=== PATIENT | male | born 1985 | race Two or more races ===

== ENCOUNTER 2024-06-25 06:16 | Emergency (ER) | payer MEDICAID, SELFPAY ==
[2024-06-25 06:21] VITALS: BP 131/77; PULSE 82; RESP 18; TEMP 36.8; O2SAT 96
--- NOTE | 2024-06-25 06:33 | PC.NURSE ---
C/O RIGHT FLANK PAIN, PT STATES HE FELL IN THE BATHROOM A COUPLE OF DAYS AGO DUE TO HIS NEUROPATHY.. BRUISING NOTED TO RIGHT FLANK AREA. PT ALERT AND ORIENTED AND IN NO ACUTE DISTRESS. WILL CONTINUE WITH PLAN OF CARE
[2024-06-25 06:36] VITALS: BMI 28.1
[2024-06-25 06:41] VITALS: BP 132/71; PULSE 84; RESP 18; O2SAT 99
--- NOTE | 2024-06-25 07:13 | EDNOTE_ITS ---
ED General RME/HPI General Chief complaint: Abdominal Pain Stated complaint: RIGHT FLANK PAIN, SOB Time Seen by Provider: 06/25/24 06:20 Arrival date/time: 06/25/24 06:16 RME / HPI RME / HPI narrative: Patient is a 38 years old male with PMH of diabetes and diabetic neuropathy presented to the ED due to back pain after ground level fall. He reports he fell 6 days ago while taking shower when he slipped accidentally. He reports pain is mostly located over his right flank which was main area of impact when he fell. He reports pain when raising legs and tenderness over lumbar spine. He denies dizziness, headache, chest pain, abdominal pain, nausea, vomiting, fever. Related Data Previous Rx's ?Medication ?Instructions ?Recorded diazepam 10 mg tablet 10 mg PO BID PRN muscle spas m #6 06/25/24 tabs Allergies Allergy/AdvReac Type Severity Reaction Status Date / Time No Known Allergies Allergy Verified 06/25/24 06:18 Review of Systems Review of Systems Systems Reviewed: All systems reviewed, normal except as documented ED Exam Narrative Physical exam: Gen: Well-developed and well-nourished male. HEENT: NCAT, PERRLA, EOMI, MMM, anicteric conjunctivae. CVS: normal S1 and S2. RRR. No M/R/G. Resp: CTA B/L. No rhonchi, rales, crackles or wheezing. Abd: soft, non-tender, non-distended. BS+ in all 4 quadrants. MSK: Good ROM in BUE & BLE. No edema or rash. Tenderness over lumbar spine and right flank. There is a bruise over right flank. Neuro: CN II-XII grossly intact. Strength 5/5 in BUE & BLE. Alert and oriented x3. Psych: appropriate mood and affect. Course Course Course Narrative: 0730: lumbar spine XR 6V negative for fractures. 0930: significant improvement after diazepam 10 mg. Quality Measures none Orders Category Date Time Status XR lumbar spine min 4V Stat Exams 06/25/24 07:31 Completed Acetaminophen Tab [Tylenol ES Tab] Med 06/25/24 08:01 Discontinued 1,000 mg PO X1 ONE Diazepam Inj [Valium Inj] Med 06/25/24 08:39 Discontinued 10 mg IVP X1 ONE Ketorolac Inj [Toradol Inj] Med 06/25/24 08:01 Discontinued 15 mg IVP X1 ONE Morphine Inj Med 06/25/24 07:19 Discontinued 2 mg IVP X1 ONE Vital Signs Vital signs: Vital Signs Temperature 98.2 F 06/25/24 06:21 Pulse Rate 82 06/25/24 06:21 Respiratory Rate 18 06/25/24 06:21 Blood Pressure 131/77 H 06/25/24 06:21 Pulse Oximetry (%) 96 06/25/24 06:21 Oxygen Delivery Method Room Air 06/25/24 06:21 [facility] Patient data External records reviewed:: [facility] previous records Clinical information provided by:: patient and family Social determinants that could affect healthcare access:: none Patient has the following chronic illnesses:: diabetes and diabetic neuropathy How is presenting disease/condition affected by chronic disease/condition?: uneffected by Evaluation data The following diagnostics were reviewed and interpreted by me:: radiology exam(s) Lab and/or radiology exams considered but not ordered:: CT spine Interpretation Summary: No acute fractures Medications Medications considered but not ordered:: oxycodone Medication administrations:: Medication Administration History Discontinued Medications Acetaminophen (Acetaminophen 500 Mg Tablet) 1,000 mg PO X1 ONE Stop: 06/25/24 08:02 Last Admin: 06/25/24 08:08 Dose: 1,000 mg Documented By: BD Diazepam (Diazepam Inj 5 Mg/Ml Vial 2 Ml) 10 mg IVP X1 ONE Stop: 06/25/24 08:40 Last Admin: 06/25/24 08:51 Dose: 10 mg Documented By: BD Ketorolac Tromethamine (Ketorolac Inj 30 Mg/Ml Vial) 15 mg IVP X1 ONE Stop: 06/25/24 08:02 Last Admin: 06/25/24 08:08 Dose: 15 mg Documented By: BD Morphine Sulfate (Morphine Sulf Inj 10 Mg/Ml Vial) 2 mg IVP X1 ONE Stop: 06/25/24 07:20 Last Admin: 06/25/24 07:28 Dose: 2 mg Documented By: BD as above Consultations Consultation(s) initiated? (list below): No Diagnosis Differential Diagnosis ED Complaint MDM: spinal fracture, contusion, sciatica Most likely diagnosis given after review of the tests above:: Contusion Admission Indicated Admission indicated?: not indicated Explain why admission is indicated or not indicated:: No acute fracture was found, pain control outpatient for back contusion and muscle spasms. Admission Request Was there a request for admission?: No Disposition Plan Disposition Plan: Discharge Discharge Attestation Discharge Attestation: The patient and all family members were given an opportunity to ask questions and understood the discharge instructions. Discharge instructions specifically effects, indications for sooner follow up or return to the emergency department, and the expected course of current diagnosis. Patient condition: Stable Medical Decision Making MDM Narrative MDM Narrative: The patient is a 38-year-old male with a history of diabetes and diabetic neuropathy who presented with back pain after a ground-level fall 6 days ago while taking a shower. The pain is localized to the right flank, where the primary impact occurred, with associated tenderness over the lumbar spine and pain when raising his legs. He denies dizziness, headache, chest pain, nausea, vomiting, fever, or other concerning symptoms. Physical examination revealed tenderness over the lumbar spine and a bruise on the right flank, but no neurological deficits. A lumbar spine X-ray was negative for fractures. The patient experienced significant improvement in symptoms following administration of diazepam, leading to the diagnosis of a back contusion with muscle spasms. The patient is stable for discharge with instructions to continue his home medications and manage pain with Valium as needed (up to twice daily), along with ibuprofen or acetaminophen as needed. He is advised to use heating pads or soak in a hot tub to relieve discomfort. Clear guidance has been provided to return to the emergency department if symptoms worsen or recur. He is instructed to follow up with his primary care provider within 1 week for further evaluation and management. The patient has understood and is agreeable to the discharge plan. Differential Diagnosis Differential Diagnosis: spinal fracture, contusion, sciatica Discharge Plan Plan Patient Disposition: HOME (Self Care) Patient condition on transfer: Stable Prescriptions/Referrals Prescriptions/Med Rec: New diazepam 10 mg tablet 10 mg PO BID PRN (Reason: muscle spasm) Qty: 6 0RF Referrals: Fredrick De La oRsa PA-C [Primary Care Provider] - In 1 week Problem List Clinical Impression: Contusion of lower back, Ground-level fall Patient/Caregiver Discharge Instructions Education Materials: ED Soft Tissue Contusion, ED Back Contusion Additional Instructions: Continue home medications as prescribed. Take Valium 1 tab as needed up to 2 times a day for back pain. Take ibuprofen or tylenol over the counter for pain as needed. Take hot tub and apply heating pad on affected area as needed. Follow up with PCP within 1 week. Return to the ED if symptoms recur or worsen. Print Language: Eritrean Stand Alone Forms: [employer]re[employer] Award Info., Patient Portal Info Letter
[2024-06-25] MEDS: MORPHINE SULF INJ 10 MG/ML VIAL 2 MG IVP (07:28)
--- NOTE | 2024-06-25 07:31 | XR_ITS ---
Examination: Lumbar spine, 5 views Technique: Lumbar spine AP, lateral, coned lateral lower lumbar spine, bilateral obliques 5 views Exam date and time: June 25, 2024 0641 hours INDICATIONS: Patient fell 2 weeks ago with injury to the lower back, lower back pain. FINDINGS: Adequate alignment lumbar vertebral bodies No lumbar fracture Diffuse [id number] lumbar disc narrowing most prominent at the lower 2 lumbar levels IMPRESSION: No acute lumbar fracture
[2024-06-25] MEDS: KETOROLAC INJ 30 MG/ML VIAL 15 MG IVP (08:08)
[2024-06-25] MEDS: ACETAMINOPHEN 500 MG TABLET 1000 MG PO (08:08)
[2024-06-25] MEDS: DIAZEPAM INJ 5 MG/ML VIAL 2 ML 10 MG IVP (08:51)
[2024-06-25 09:21] VITALS: BP 115/68; PULSE 71; RESP 20; TEMP 36.8; O2SAT 96
[2024-06-25 10:00] VITALS: BP 128/72; PULSE 78; RESP 15; TEMP 36.8; O2SAT 98
== END 2024-06-25 10:41 | disposition home or self-care (01) ==
PROVIDERS: Emergency Provider Emergency Medicine; PCP Physician Assistant
DX: S30.0XXA Contusion of lower back and pelvis, initial encounter (principal); W18.30XA Fall on same level, unspecified, initial encounter; E11.40 Type 2 diabetes mellitus with diabetic neuropathy, unspecified
CPT/HCPCS: 72110; 96374; 99284; J1885; J2270; J3360; A9270

== ENCOUNTER 2024-06-25 16:29 | Emergency (ER) | payer MEDICAID, SELFPAY ==
[2024-06-25 17:08] VITALS: BP 136/78; PULSE 94; RESP 18; TEMP 36.9; O2SAT 99; BMI 27.3
--- NOTE | 2024-06-25 17:08 | EKG_ITS ---
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
--- NOTE | 2024-06-25 17:08 | XR_ITS ---
Examination: AP chest single view TECHNIQUE: AP portable sitting chest single view Examination time: 20/08/2024 1736 hours INDICATIONS: Chest pain today. FINDINGS: Normal heart size. Lungs are clear. The osseous structures are intact. IMPRESSION: No active disease
--- NOTE | 2024-06-25 17:08 | PD.EDRME ---
Rapid Medical Screening Exam RME Arrival date/time: 06/25/24 16:29 38-year-old male presents to the emergency department for complaints of dizziness Chief Complaint: Dizziness Time Seen by Provider: 06/25/24 16:36
[2024-06-25 17:31] LABS: Basophils # (Auto) 0.1 Thou/mm3 (0.0-0.2); Basophils % (Auto) 1 % (0-2.5); Eosinophils % (Auto) 0 % (0-10); Hematocrit 31.9 % (41.0-53.0); Hemoglobin 11.2 g/dL (13.5-16.0); Immature Granulocytes % (Auto) 1 % (0-0); Immature Granulocytes Auto 0.03 Thou/mm3 (0.00-0.00); Lymphocytes # (Auto) 1.4 Thou/mm3 (1.0-4.8); Lymphocytes % (Auto) 22 % (10-50); Mean Corpuscular HGB Conc 35.1 g/dl (31.0-37.0); Mean Corpuscular Hemoglobin 33.5 pg (25.0-35.0); Mean Corpuscular Volume 96 fL (80-100); Monocytes # (Auto) 0.4 Thou/mm3 (0.0-0.8); Monocytes % (Auto) 6 % (0-12); Neutrophils # (Auto) 4.6 Thou/mm3 (1.8-7.7); Neutrophils % (Auto) 71 % (37-80); Nucleated Red Blood Cell % 0 /100 WBC (0); RDW Standard Deviation 49.1 fL (35.1-43.9); Red Blood Count 3.34 Miln/mm3 (4.50-5.90); White Blood Count 6.5 Thou/mm3 (3.8-10.6)
[2024-06-25 17:42] LABS: Platelet Count 75 Thou/mm3 (140-440)
[2024-06-25 17:44] LABS: INR 1.3 (0.9-1.3); Partial Thromboplastin Time 34.8 Seconds (22.0-36.0)
[2024-06-25 17:48] LABS: B-Type Natriuretic Peptide 48 pg/mL (0-100)
[2024-06-25 17:49] LABS: Alanine Aminotransferase 51 U/L (10-49); Albumin, Serum 3.5 gm/dL (3.5-5.0); Albumin/Globulin Ratio 0.7 (1.2-2.2); Alkaline Phosphatase 180 U/L (46-116); Anion Gap 10 (7-16); Aspartate Amino Transferase 116 U/L (0-34); BUN/Creatinine Ratio 6 Ratio (12-20); Blood Urea Nitrogen < 5 mg/dL (9-23); Calcium 10.1 mg/dL (8.3-10.6); Calcium (Corrected) 10.5 mg/dL (8.5-10.1); Chloride 100 mMol/L (98-107); Creatinine (Component) 0.8 mg/dL (0.6-1.3); Estimated Creatinine Clearance 123.5 mL/min (>60); Globulin 4.9 gm/dL (2.3-3.5); Glucose 134 mg/dL (74-106); Magnesium 1.7 mg/dL (1.6-2.6); Osmolality,Calculated 274 (275-295); Sodium 138 mMol/L (136-145); Total Protein 8.4 gm/dL (5.7-8.2); Troponin I < 0.002 ng/mL (0.0-0.045); eGFR > 60 See Note
[2024-06-25 17:58] LABS: Slide Review Platelets confirmed
--- NOTE | 2024-06-25 18:34 | XR_ITS ---
Examination: Abdomen sonogram, Limited Date and time of exam: June 25, 2024, 1906 hours INDICATIONS: Elevated liver enzymes on laboratory examination today, patient fell 2 days ago and has right sided abdominal pain Technique: Real-time gaitan scale transabdominal sonographic images of the upper abdomen obtained. Findings: Gallbladder sludge versus small gallstones Gallbladder wall 0.25 cm Common bile duct 0.56 cm no definite stones Pancreatic head 3.5 cm Liver 18.9 cm fatty infiltration no liver laceration or liver mass Normal hepatopedal portal venous flow Patent IVC IMPRESSION: Gallbladder sludge versus small gallstones Pancreatic head measures prominent, clinical correlation advised Liver 18.9 cm fatty infiltration no liver laceration noted If sharp right upper abdominal pain persists, consider CT scan abdomen pelvis post intravenous contrast follow-up
[2024-06-25 19:32] LABS: Lipase 30 U/L (12-53)
[2024-06-25 20:47] VITALS: BP 136/100; PULSE 97; RESP 31; TEMP 36.8; O2SAT 100
[2024-06-25] MEDS: MORPHINE SULF INJ 10 MG/ML VIAL IM (20:51)
[2024-06-25] MEDS: ONDANSETRON ODT 4 MG TABRAP PO (20:54)
--- NOTE | 2024-06-25 21:04 | PD.EDABDPN ---
ED Abdominal Pain RME/HPI General Chief Complaint: Dizziness Stated complaint: DIZZY, NAUSEA FEELS FAINT Time seen by provider: 06/25/24 16:36 Arrival date/time: 06/25/24 16:29 RME / HPI RME / HPI narrative: 06/25/24 16:29 38-year-old male presents to the emergency department for complaints of dizziness This section includes all my notes and documentations, including HPI, PE, and ED course. Duncan Hurd MD HPI: 38-year-old male here with about a week history of right sided chest/abdominal pain. With nausea and vomiting on and off. Seems to be associated with food. No hematemesis or coffee-ground emesis. No rectal bleeding or tarry stools. No urinary symptoms. No other complaints. ROS: All negative except as documented in HPI. Physical Exam: General: Alert and oriented. In obvious pain. Eyes: Conjunctivae and lids clear. ENT: No nasal congestion. Neck: Supple. Heart: RRR. Lungs: No respiratory distress. Good air movement. No rhonchi, wheezing, rales. Abdomen: Soft with RUQ tenderness. Normal bowel sounds. No distension. No rebound or guarding. Back: No CVA tenderness. Skin: Warm and dry. Neuro: Alert and oriented X 3. I reviewed all diagnostic test results. My interpretation of the EKG is sinus rhythm with no acute ST?T changes. My interpretation of the chest x-ray is no acute findings. My review of the gallbladder US report is cholelithiasis. Blood tests unremarkable. At this point, diagnoses include biliary colic. Treatment here included Zofran and morphine and Reglan Significant improvement noted. Recommended supportive care and more outpatient workup. Based on my best medical judgment, made decision no further evaluation or treatment indicated at this time. Patient understands and agrees to the discharge instructions customized and printed, see below. Discharge Instructions from Dr. Hurd: 1. After evaluation, your symptoms are due to gallstone(s).? You need gallbladder to help digest fatty foods. 2. So to prevent future attacks, avoid all fatty and oily and greasy and buttery and dairy foods.? This usually means take out and fast food restaurants. 3. Zofran for nausea/vomiting.? Tylenol with codeine for severe pain.?? 4. See a private doctor on 06/26/2024 for recheck and further care. Ask to review all test results and official radiology reports, to make sure you receive all necessary follow-ups and monitoring. Ask for help seeing a general surgeon to discuss elective surgery. 5. Seek immediate medical care with intolerable pain, fever, or with any concerns. Duncan Hurd MD Related Data Previous Rx's ?Medication ?Instructions ?Recorded acetaminophen 300 mg-codeine 30 mg 2 tab PO Q8H PRN pain #20 tabs 06/25/24 tablet diazepam 10 mg tablet 10 mg PO BID PRN muscle spasm #6 06/25/24 tabs ondansetron 4 mg disintegrating 4 mg PO TID PRN nausea and 06/25/24 tablet vomiting 30 days #10 tabs Allergies Allergy/AdvReac Type Severity Reaction Status Date / Time No Known Allergies Allergy Verified 06/25/24 16:33 Course Quality Measures none Orders Category Date Time Status EKG (ED ONLY) *Do not use* NOW Care 06/25/24 17:08 Completed EKG (ED Only) Stat Exams 06/25/24 17:08 Draft US abdomen limited Stat Exams 06/25/24 18:34 Completed XR chest 1V portable Stat Exams 06/25/24 17:08 Completed B-Type Natriuretic Peptide Stat Lab 06/25/24 17:24 Completed CBC Stat Lab 06/25/24 17:24 Completed Comprehensive Metabolic Panel Stat Lab 06/25/24 17:24 Completed Lipase Stat Lab 06/25/24 17:24 Completed Magnesium Stat Lab 06/25/24 17:24 Completed Partial Thromboplastin Time Stat Lab 06/25/24 17:24 Completed Prothrombin Time with INR Stat Lab 06/25/24 17:24 Completed Troponin I Stat Lab 06/25/24 17:24 Completed Metoclopramide [Reglan] Med 06/25/24 21:40 Discontinued 10 mg PO X1 ONE Morphine Inj Med 06/25/24 20:24 Discontinued 10 mg IM X1 ONE Ondansetron Odt [Zofran Odt] Med 06/25/24 20:24 Discontinued 4 mg PO X1 ONE Vital Signs Vital signs: Vital Signs Temperature 98.4 F 06/25/24 17:08 Pulse Rate 94 06/25/24 17:08 Respiratory Rate 18 06/25/24 17:08 Blood Pressure 136/78 H 06/25/24 17:08 Pulse Oximetry (%) 99 06/25/24 17:08 Oxygen Delivery Method Room Air 06/25/24 17:08 Abdominal Pain MDM Patient data External records reviewed:: [facility] previous records Clinical information provided by:: patient and friend Social determinants that could affect healthcare access:: none Patient has the following chronic illnesses:: None How is presenting disease/condition affected by chronic disease/condition?: uneffected by Evaluation data The following diagnostics were reviewed and interpreted by me:: lab results, radiology exam(s) and EKG tracing(s) Lab and/or radiology exams considered but not ordered:: None Interpretation Summary: Biliary colic Medications / Prescriptions Medications or Prescriptions considered but not ordered:: None Medication administrations:: Medication Administration History Discontinued Medications Metoclopramide HCl (Metoclopramide Liqd 10 Mg/10 Ml Udc) 10 mg PO X1 ONE Stop: 06/25/24 21:41 Last Admin: 06/25/24 21:51 Dose: 10 mg Documented By: ROSSANA Morphine Sulfate (Morphine Sulf Inj 10 Mg/Ml Vial) 10 mg IM X1 ONE Stop: 06/25/24 20:25 Last Admin: 06/25/24 20:51 Dose: 10 mg Documented By: ROSSANA Ondansetron HCl (Ondansetron Odt 4 Mg Tabrap) 4 mg PO X1 ONE; Protocol Stop: 06/25/24 20:25 Last Admin: 06/25/24 20:54 Dose: 4 mg Documented By: ROSSANA Collado and morphine Consultations Consultation(s) initiated? (list below): No Diagnosis Differential diagnosis abdominal pain: constipation, gastroenteritis and other (Biliary colic, GERD, PUD, gastritis, musculoskeletal pain) Most likely diagnosis given after review of the tests above:: Biliary colic Admission Indicated Admission indicated?: not indicated Explain why admission is indicated or not indicated:: With significant improvement, there was no indication for admission. Admission Request Was there a request for admission?: No Disposition Plan Disposition Plan: Discharge Discharge Attestation Discharge Attestation: The patient and all family members were given an opportunity to ask questions and understood the discharge instructions. Discharge instructions specifically effects, indications for sooner follow up or return to the emergency department, and the expected course of current diagnosis. Patient condition: Stable Discharge Plan Plan Patient Disposition: HOME (Self Care) Prescriptions/Referrals Prescriptions/Med Rec: New acetaminophen-codeine 300-30 mg tablet 2 tab PO Q8H MDD 6 PRN (Reason: pain) Qty: 20 0RF ondansetron 4 mg tablet,disintegrating 4 mg PO TID PRN (Reason: nausea and vomiting) 30 Days Qty: 10 0RF No Action diazepam 10 mg tablet 10 mg PO BID PRN (Reason: muscle spasm) Qty: 6 0RF Referrals: Fredrick De La Rosa PA-C [Primary Care Provider] - In 1 week Problem List Clinical Impression: Gallstones Patient/Caregiver Discharge Instructions Discharge Activity: activity as tolerated Education Materials: ED Gallstones with Biliary Colic Additional Instructions: Discharge Instructions from Dr. Hurd: 1. After evaluation, your symptoms are due to gallstone(s).? You need gallbladder to help digest fatty foods. 2. So to prevent future attacks, avoid all fatty and oily and greasy and buttery and dairy foods.? This usually means take out and fast food restaurants. 3. Zofran for nausea/vomiting.? Tylenol with codeine for severe pain.?? 4. See a private doctor on 06/26/2024 for recheck and further care. Ask to review all test results and official radiology reports, to make sure you receive all necessary follow-ups and monitoring. Ask for help seeing a general surgeon to discuss elective surgery. 5. Seek immediate medical care with intolerable pain, fever, or with any concerns. Print Language: Zimbabwean Stand Alone Forms: Nereida Award Info., Patient Portal Info Letter
[2024-06-25] MEDS: METOCLOPRAMIDE LIQD 10 MG/10 ML UDC PO (21:51)
[2024-06-25 21:58] VITALS: BP 126/81; PULSE 79; RESP 25; TEMP 36.8
== END 2024-06-25 22:04 | disposition home or self-care (01) ==
PROVIDERS: Nurse Practitioner Primary Care; Emergency Provider Emergency Medicine; PCP Physician Assistant
DX: K80.70 Calculus of gallbladder and bile duct without cholecystitis without obstruction (principal)
CPT/HCPCS: 36415; 71045; 76705; 80053; 80307; 81001; 83690; 83735; 83880; 84484; 85025; 85610; 85730; 93005; 96372; 99284; J2270; Q0162; A9270

== ENCOUNTER 2024-10-16 07:04 | Emergency (ER) | payer MEDICAID, SELFPAY ==
[2024-10-16 07:20] VITALS: BP 117/68; PULSE 96; RESP 18; TEMP 36.8; O2SAT 100; BMI 25.8
--- NOTE | 2024-10-16 07:21 | EKG_ITS ---
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
--- NOTE | 2024-10-16 07:22 | PD.EDRME ---
Rapid Medical Screening Exam RME Arrival date/time: 10/16/24 07:04 38-year-old male with history of alcohol abuse and cirrhosis presents to the emergency department today for complaints of generalized weakness and dizziness Chief Complaint: Dizziness Vital signs: Vital Signs Temperature 98.3 F 10/16/24 07:20 Pulse Rate 96 10/16/24 07:20 Respiratory Rate 18 10/16/24 07:20 Blood Pressure 117/68 10/16/24 07:20 Pulse Oximetry (%) 100 10/16/24 07:20 Oxygen Delivery Method Room Air 10/16/24 07:20
[2024-10-16 07:45] LABS: Basophils # (Auto) 0.1 Thou/mm3 (0.0-0.2); Basophils % (Auto) 1 % (0-2.5); Eosinophils # (Auto) 0.0 Thou/mm3 (0.0-0.5); Eosinophils % (Auto) 1 % (0-10); Hematocrit 30.7 % (41.0-53.0); Hemoglobin 11.0 g/dL (13.5-16.0); Immature Granulocytes Auto 0.03 Thou/mm3 (0.00-0.00); Lymphocytes # (Auto) 2.2 Thou/mm3 (1.0-4.8); Lymphocytes % (Auto) 40 % (10-50); Mean Corpuscular HGB Conc 35.8 g/dl (31.0-37.0); Mean Corpuscular Hemoglobin 33.8 pg (25.0-35.0); Mean Corpuscular Volume 95 fL (80-100); Monocytes # (Auto) 0.3 Thou/mm3 (0.0-0.8); Monocytes % (Auto) 5 % (0-12); Neutrophils # (Auto) 2.9 Thou/mm3 (1.8-7.7); Neutrophils % (Auto) 53 % (37-80); Nucleated Red Blood Cell # 0.00 Thou/mm3 (0.00-0.00); Nucleated Red Blood Cell % 0 /100 WBC (0); Platelet Count 95 Thou/mm3 (140-440); RDW Standard Deviation 48.5 fL (35.1-43.9); Red Blood Count 3.25 Miln/mm3 (4.50-5.90); White Blood Count 5.5 Thou/mm3 (3.8-10.6)
--- NOTE | 2024-10-16 07:46 | EDNOTE_ITS ---
ED Dizzyness RME/HPI General Chief Complaint: Dizziness Stated Complaint: DIZZY, WEAK, BODY PAIN X YESTERDAY Time Seen by Provider: 10/16/24 07:42 Arrival date/time: 10/16/24 07:04 RME / HPI RME / HPI Narrative: 10/16/24 07:04 38-year-old male with history of alcohol abuse and cirrhosis presents to the emergency department today for complaints of generalized weakness and dizziness DR. VAUGHN MAIN ED EVALUATION: 38 year old male with history of liver cirrhosis, diabetes, neuropathy presents to the ED for evaluation of dizziness, weakness, and feeling tremulous beginning yesterday. Accompanied by generalized body aches, nausea, and vomiting. reports the patient was a heavy drinker and quit drinking for several months. However, patient began drinking again 5 days ago Monday with his last drink c onsumed at 6PM yesterday. denies any history of the patient shaking in the past. Related Data Previous Rx's ?Medication ?Instructions ?Recorded acetaminophen 300 mg-codeine 30 mg 2 tab PO Q8H PRN pa in #20 tabs 06/25/24 tablet diazepam 10 mg tablet 10 mg PO BID PRN muscle spas m #6 06/25/24 tabs cephalexin 500 mg capsule 500 mg PO TID 7 days #21 cap s 10/16/24 chlordiazepoxide HCl 25 mg capsule 25 mg PO TID PRN al cohol 10/16/24 withdrawal #20 caps Allergies Allergy/AdvReac Type Severity Reaction Status Date / Time No Known Allergies Allergy Verified 10/16/24 07:06 Review of Systems Review of Systems Systems Reviewed: All systems reviewed, normal except as documented Past Medical History Past Medical History CARDIAC: Negative Congestive Heart Failure RESPIRATORY: Negative Chronic Obstructive Pulmonary Disease (COPD) GASTROINTESTINAL: Positive Cirrhosis GENITOURINARY: Negative Renal Disease ENDOCRINE: Positive Diabetes Mellitus Type 2; Negative Diabetes Mellitus Type 1 Social History SMOKING STATUS: Never smoker ED Exam Narrative Physical exam: Generally patient is alert and oriented but tremulous. Heart regular rate and rhythm lungs clear to auscultation equal bilaterally abdomen soft bowel sounds present diffusely tender without rebound. Neurologic exam shows the patient to be without asterixis or focal neurologic deficit. Patient is alert and oriented x 4. Course Quality Measures none Orders Category Date Time Status EKG (ED ONLY) *Do not use* NOW Care 10/16/24 07:21 Completed EKG (ED Only) Stat Exams 10/16/24 07:21 Draft Alcohol, Blood Medical Stat Lab 10/16/24 07:36 Completed B-Type Natriuretic Peptide Stat Lab 10/16/24 07:36 Completed CBC Stat Lab 10/16/24 07:36 Completed Comprehensive Metabolic Panel Stat Lab 10/16/24 07:36 Completed Drug Screen,Urine Stat Lab 10/16/24 09:25 Completed Magnesium Stat Lab 10/16/24 07:36 Completed Partial Thromboplastin Time Stat Lab 10/16/24 07:36 Completed Prothrombin Time with INR Stat Lab 10/16/24 07:36 Completed Troponin I Stat Lab 10/16/24 07:36 Completed Urinalysis Stat Lab 10/16/24 09:25 Completed LORazepam [Ativan Inj] Med 10/16/24 07:53 Discontinued 1 mg IVP X1 ONE Magnesium Sulfate 2 GM Ivpb [Magnesium Sulfate Ivpb] Med 10/16/24 08:59 Active 2 gm in 50 ml IV X1 Potassium Chloride [K-Dur] Med 10/16/24 09:30 Discontinued 20 meq PO X1 ONE Potassium Chloride [K-Dur] Med 10/16/24 09:15 Discontinued 40 meq PO X1 ONE Reevaluation(s) Reevaluation #1: Patient improved after Ativan Time: 08:36 Vital Signs Vital signs: Vital Signs Temperature 98.3 F 10/16/24 07:20 Pulse Rate 96 10/16/24 07:20 Respiratory Rate 18 10/16/24 07:20 Blood Pressure 117/68 10/16/24 07:20 Pulse Oximetry (%) 100 10/16/24 07:20 Oxygen Delivery Method Room Air 10/16/24 07:20 Pulse ox is 100% on room air which is adequate. Dizziness MDM Narrative MDM Narrative:: IDebby, am scribing for and in the presence of Dr. Vaughn. I interpreted all labs. Interestingly, there appears to be a urinary tract infection in this 38-year-old male. This is based on the urinalysis. Patient's blood alcohol level is 215. Urinary tox screen is positive for marijuana. Patient was tremulous here in the emergency room. Patient was given Ativan 1 mg IV which helped resolve the tremor. I believe the patient's presenting cond ition to be due to alcohol withdrawal. Patient will be discharged on Librium and cephalexin to be taken as prescribed. Refrain from alcohol. Return to ER as needed or if condition worsens. Patient data External records reviewed:: [facility] previous records (I reviewed ED visit on 06/25/2024 ) Clinical information provided by:: patient and spouse (Provided additional history ) Social determinants that could affect healthcare access:: alcohol use Patient has the following chronic illnesses:: liver cirrhosis, diabetes, neuropathy How is presenting disease/condition affected by chronic disease/condition?: exacerbated by Evaluation data The following diagnostics were reviewed and interpreted by me:: lab results and EKG tracing(s) Lab and/or radiology exams considered but not ordered:: None Interpretation Summary: As noted above Medications / Prescriptions Medications or Prescriptions considered but not ordered:: None Medication administrations:: Medication Administration History Magnesium Sulfate (Magnesium Sulfate Ivpb) 2 gm in 50 mls @ 25 mls/hr IV X1 ONE Stop: 10/16/24 10:58 Discontinued Medications Lorazepam (Lorazepam 2 Mg/Ml Vial) 1 mg IVP X1 ONE Stop: 10/16/24 07:54 Last Admin: 10/16/24 08:16 Dose: 1 mg Documented By: CONCHITA Potassium Chloride (Potassium Chloride 20 Meq Tabcr) 20 meq PO X1 ONE Stop: 10/16/24 09:31 Potassium Chloride (Potassium Chloride 20 Meq Tabcr) 40 meq PO X1 ONE Stop: 10/16/24 09:16 See above Consultations Consultation(s) initiated? (list below): No Diagnosis Most likely diagnosis given after review of the tests above:: Alcohol withdrawal UTI Admission Indicated Admission indicated?: not indicated Admission Request Was there a request for admission?: No Disposition Plan Disposition Plan: Discharge Discharge Attestation Discharge Attestation: The patient and all family members were given an opportunity to ask questions and understood the discharge instructions. Discharge instructions specifically effects, indications for sooner follow up or return to the emergency department, and the expected course of current diagnosis. Patient condition: Stable Discharge Plan Plan Patient Disposition: HOME (Self Care) Prescriptions/Referrals Prescriptions/Med Rec: New chlordiazepoxide HCl 25 mg capsule 25 mg PO TID PRN (Reason: alcohol withdrawal) Qty: 20 0RF cephalexin 500 mg capsule 500 mg PO TID 7 Days Qty: 21 0RF No Action diazepam 10 mg tablet 10 mg PO BID PRN (Reason: muscle spasm) Qty: 6 0RF acetaminophen-codeine 300-30 mg tablet 2 tab PO Q8H MDD 6 PRN (Reason: pain) Qty: 20 0RF Referrals: Fredrick De La Rosa PA-C [Primary Care Provider] - In 1 week Problem List Clinical Impression: Alcohol withdrawal, UTI (urinary tract infection) Patient/Caregiver Discharge Instructions Additional Instructions: Avoid alcohol. Take medication as prescribed. Follow-up with your doctor. Return to ER as needed or if condition worsens. Print Language: Ghanaian Stand Alone Forms: [facility] Award Info., Patient Portal Info Letter
[2024-10-16 07:59] LABS: B-Type Natriuretic Peptide 47 pg/mL (0-100)
[2024-10-16 08:01] LABS: Alanine Aminotransferase 49 U/L (10-49); Albumin, Serum 3.4 gm/dL (3.5-5.0); Albumin/Globulin Ratio 0.9 (1.2-2.2); Alcohol, Blood Medical 215.1 mg/dL (0-10.0); Alkaline Phosphatase 108 U/L (46-116); Anion Gap 10 (7-16); Aspartate Amino Transferase 82 U/L (0-34); BUN/Creatinine Ratio 7 Ratio (12-20); Bilirubin,Total 2.9 mg/dL (0.3-1.2); Blood Urea Nitrogen < 5 mg/dL (9-23); Calcium 8.5 mg/dL (8.3-10.6); Calcium (Corrected) 9.0 mg/dL (8.5-10.1); Carbon Dioxide 25.4 mMol/L (20.0-31.0); Chloride 107 mMol/L (98-107); Creatinine (Component) 0.7 mg/dL (0.6-1.3); Estimated Creatinine Clearance 141.1 mL/min (>60); Globulin 4.0 gm/dL (2.3-3.5); Glucose 121 mg/dL (74-106); Magnesium 1.2 mg/dL (1.6-2.6); Osmolality,Calculated 281 (275-295); Potassium 3.1 mMol/L (3.4-5.1); Sodium 142 mMol/L (136-145); Total Protein 7.4 gm/dL (5.7-8.2); Troponin I < 0.020 ng/mL (0.0-0.045); eGFR > 60 See Note
[2024-10-16 08:08] VITALS: BP 118/76; PULSE 86; RESP 20; O2SAT 96
[2024-10-16] MEDS: LORazepam 2 MG/ML VIAL 1 MG IVP (08:16)
[2024-10-16 08:56] LABS: INR 1.3 (0.9-1.3); Partial Thromboplastin Time 35.5 Seconds (22.0-36.0); Prothrombin Time 14.2 Seconds (9.0-12.2)
[2024-10-16 09:38] LABS: Collection Type, Urine Clean Catch
[2024-10-16 09:52] LABS: Amorphous Crystals,Urine Present (Absent); Bacteria,Urine 1+; Bilirubin,Urine Negative (Negative); Blood,Urine Negative (Negative); Color,Urine Yellow (Lt Yel-Yel); Glucose, Urine Negative (Negative); Ketones,Urine Negative (Negative); Leukocyte Esterase,Urine Positive (Negative); Nitrite,Urine Positive (Negative); PH,Urine 6.0 (5.0-7.0); Protein,Urine Trace (Neg - Trace); RBC,Urine 9 /hpf (0-3); Specific Gravity,Urine 1.020 (1.001-1.035); Squamous Epithelial Cell,Urine 2 /hpf (0-5); Urobilinogen,Urine Negative mg/dL (0.0-1.0); WBC,Urine 273 /hpf (0-5)
[2024-10-16 09:55] LABS: Clarity,Urine Turbid (Clear/Hazy)
[2024-10-16 09:56] LABS: Amphetamine/Methamp Scrn,U Negative (Negative); Barbiturate Screen,Urine Negative (Negative); Benzodiazepines Screen,Urine Negative (Negative); Benzoylecgonine Screen, Ur Negative (Negative); Fentanyl Screen,Urine Negative (Negative); Opiate Screen,Urine Negative (Negative); THC Screen,Urine Positive (Negative)
[2024-10-16 10:00] VITALS: BP 117/72; PULSE 100; RESP 20; TEMP 36.8; O2SAT 99
[2024-10-16] MEDS: Magnesium Sulfate 2 GM Ivpb 2 GM/50 ML BAG IV (10:58)
[2024-10-16 12:20] VITALS: BP 120/73; PULSE 88; RESP 19; TEMP 36.6; O2SAT 100
== END 2024-10-16 12:26 | disposition home or self-care (01) ==
PROVIDERS: Nurse Practitioner Primary Care; Emergency Provider Emergency Medicine; PCP Physician Assistant
DX: F10.939 Alcohol use, unspecified with withdrawal, unspecified (principal); N39.0 Urinary tract infection, site not specified
CPT/HCPCS: 36415; 80053; 80307; 80320; 81001; 83735; 83880; 84484; 85025; 85610; 85730; 93005; 96365; 96375; 99283; J2060; J3475; A9270; G0480

== ENCOUNTER 2024-10-27 05:34 | Emergency (ER) | payer MEDICAID, SELFPAY ==
[2024-10-27 05:35] VITALS: BMI 25.8
[2024-10-27 05:44] VITALS: BP 124/75; PULSE 80; RESP 16; TEMP 36.9; O2SAT 100
--- NOTE | 2024-10-27 05:48 | XR_ITS ---
Examination: CT abdomen and pelvis without contrast. Coronal 3-D reconstructions. Sagittal 2-D reconstructions. Date and time of exam:October 27, 2024, 0608 hours INDICATIONS: Onset abdominal pain today CTDI: vol (mGy): 7.53 DLP: (mGycm): 478 Technique: Axial images of the abdomen have been obtained, 3 mm slice thickness Intravenous contrast material has not been administered. Low dose protocols were performed. One or more of the following dose reduction techniques were used; automated exposure control, adjustment of the mA and/or KV according to patient size, use of iterative reconstruction technique. Findings: Liver is irregular in contour, no focal liver lesions Gallstones, gallbladder wall appears thickened Prominent splenomegaly No pancreatic mass Esophageal varices Perigastric varices No renal or ureteral calculi, no hydronephrosis Mild ascites 10 mm fat-containing umbilical hernia Normal appendix No bowel obstruction Minimal thickening of the urinary bladder wall No prostatomegaly L5-S1 3 mm central lumbar disc bulge IMPRESSION: Cirrhosis Prominent splenomegaly Mild ascites Esophageal and perigastric varices Cholelithiasis, recommend hepatobiliary sonography to exclude cholecystitis Normal appendix
--- NOTE | 2024-10-27 05:48 | PD.EDRME ---
Rapid Medical Screening Exam RME Arrival date/time: 10/27/24 05:34 This is a case of 38-year-old male with no medical history came into the emergency room due to right-sided abdominal pain for 2 days with nausea vomiting due to persistence of the symptoms this patient decided to start consult here in the emergency room Chief Complaint: Abdominal Pain Vital signs: Vital Signs Temperature 98.5 F 10/27/24 05:44 Pulse Rate 80 10/27/24 05:44 Respiratory Rate 16 10/27/24 05:44 Blood Pressure 124/75 10/27/24 05:44 Pulse Oximetry (%) 100 10/27/24 05:44 Oxygen Delivery Method Room Air 10/27/24 05:44
[2024-10-27 06:40] VITALS: BP 119/66; PULSE 77; RESP 19; TEMP 36.7; O2SAT 100
[2024-10-27 06:48] LABS: Basophils # (Auto) 0.1 Thou/mm3 (0.0-0.2); Basophils % (Auto) 1 % (0-2.5); Eosinophils # (Auto) 0.1 Thou/mm3 (0.0-0.5); Eosinophils % (Auto) 2 % (0-10); Hematocrit 32.8 % (41.0-53.0); Hemoglobin 11.2 g/dL (13.5-16.0); Immature Granulocytes Auto 0.01 Thou/mm3 (0.00-0.00); Lymphocytes # (Auto) 2.5 Thou/mm3 (1.0-4.8); Lymphocytes % (Auto) 44 % (10-50); Mean Corpuscular HGB Conc 34.1 g/dl (31.0-37.0); Mean Corpuscular Hemoglobin 33.9 pg (25.0-35.0); Mean Corpuscular Volume 99 fL (80-100); Monocytes # (Auto) 0.5 Thou/mm3 (0.0-0.8); Monocytes % (Auto) 9 % (0-12); Neutrophils # (Auto) 2.6 Thou/mm3 (1.8-7.7); Neutrophils % (Auto) 44 % (37-80); Nucleated Red Blood Cell # 0.00 Thou/mm3 (0.00-0.00); Nucleated Red Blood Cell % 0 /100 WBC (0); Platelet Count 102 Thou/mm3 (140-440); RDW Standard Deviation 51.4 fL (35.1-43.9); Red Blood Count 3.30 Miln/mm3 (4.50-5.90); White Blood Count 5.8 Thou/mm3 (3.8-10.6)
[2024-10-27 07:12] LABS: Collection Type, Urine Clean Catch
[2024-10-27 07:16] LABS: Alanine Aminotransferase 31 U/L (10-49); Albumin, Serum 3.4 gm/dL (3.5-5.0); Albumin/Globulin Ratio 0.9 (1.2-2.2); Alkaline Phosphatase 115 U/L (46-116); Anion Gap 10 (7-16); Aspartate Amino Transferase 56 U/L (0-34); BUN/Creatinine Ratio 10 Ratio (12-20); Bilirubin,Total 3.1 mg/dL (0.3-1.2); Blood Urea Nitrogen 8 mg/dL (9-23); Calcium 9.0 mg/dL (8.3-10.6); Calcium (Corrected) 9.5 mg/dL (8.5-10.1); Carbon Dioxide 26.0 mMol/L (20.0-31.0); Chloride 105 mMol/L (98-107); Creatinine (Component) 0.8 mg/dL (0.6-1.3); Estimated Creatinine Clearance 123.5 mL/min (>60); Globulin 3.9 gm/dL (2.3-3.5); Glucose 103 mg/dL (74-106); Lipase 32 U/L (12-53); Osmolality,Calculated 279 (275-295); Potassium 3.7 mMol/L (3.4-5.1); Sodium 141 mMol/L (136-145); Total Protein 7.3 gm/dL (5.7-8.2); eGFR > 60 See Note
[2024-10-27 07:22] LABS: Bilirubin,Urine Negative (Negative); Blood,Urine Negative (Negative); Calcium Oxalate Crystals,Urine 1+; Clarity,Urine Clear (Clear/Hazy); Color,Urine Yellow (Lt Yel-Yel); Glucose, Urine Negative (Negative); Ketones,Urine Negative (Negative); Leukocyte Esterase,Urine Negative (Negative); Nitrite,Urine Negative (Negative); PH,Urine 6.5 (5.0-7.0); Protein,Urine Negative (Neg - Trace); RBC,Urine < 1 /hpf (0-3); Specific Gravity,Urine 1.020 (1.001-1.035); Squamous Epithelial Cell,Urine 2 /hpf (0-5); Urobilinogen,Urine 4.0 mg/dL (0.0-1.0); WBC,Urine 1 /hpf (0-5)
--- NOTE | 2024-10-27 07:36 | EDNOTE_ITS ---
ED Abdominal Pain RME/HPI General Chief Complaint: Abdominal Pain Stated complaint: ABD PAIN, DIARRHEA Arrival date/time: 10/27/24 05:34 Limitations: no limitations RME / HPI RME / HPI narrative: 10/27/24 05:34 This is a case of 38-year-old male with no medical history came into the emergency room due to right-sided abdominal pain for 2 days with nausea vomiting due to persistence of the symptoms this patient decided to start consult here in the emergency room DR. RHIANNON BURNETT ED EVALUATION: Related Data Previous Rx's ?Medication ?Instructions ?Recorded acetaminophen 300 mg-codeine 30 mg 2 tab PO Q8H PRN pa in #20 tabs 06/25/24 tablet diazepam 10 mg tablet 10 mg PO BID PRN muscle spas m #6 06/25/24 tabs chlordiazepoxide HCl 25 mg capsule 25 mg PO TID PRN al cohol 10/16/24 withdrawal #20 caps Allergies Allergy/AdvReac Type Severity Reaction Status Date / Time No Known Allergies Allergy Verified 10/27/24 05:35 Review of Systems Review of Systems Systems Reviewed: All systems reviewed, normal except as documented Past Medical History Past Medical History GASTROINTESTINAL: Positive Cirrhosis ENDOCRINE: Positive Diabetes Mellitus Type 2 Social History SMOKING STATUS: Never smoker SUBSTANCE USE: does not use ED Exam General Limitations: Present no limitations General appearance: Present alert, in no apparent distress and other (looks chronically ill) Head Head exam: Present atraumatic, normocephalic and normal inspection Eye Eye exam: Present normal appearance, PERRL and EOMI ENT ENT exam: Present normal exam, normal oropharynx and mucous membranes moist Neck Neck exam: Present normal inspection, full ROM and trachea midline Chest Chest inspection: Present normal inspection and symmetric chest wall rise Respiratory Respiratory exam: Present normal lung sounds bilaterally Cardiovascular Cardiovascular exam: Present regular rate, normal rhythm and normal heart sounds Abdominal Exam Abdominal exam: Present soft and normal bowel sounds Extremities Exam Extremities exam: Present normal inspection and full ROM Back Exam Back exam: Present normal inspection and full ROM Neurological Exam Neurological exam: Present alert, oriented X3 and CN II-XII intact Psychiatric Psychiatric exam: Present normal affect and normal mood Skin Skin exam: Present warm, dry, intact and normal color Course Quality Measures none Orders Category Date Time Status CT abdomen pelvis wo con Stat Exams 10/27/24 05:48 Completed NM HIDA w pharm Stat Exams 10/27/24 11:51 Ordered US abdomen limited Stat Exams 10/27/24 07:37 Completed CBC Stat Lab 10/27/24 06:25 Completed Comprehensive Metabolic Panel Stat Lab 10/27/24 06:25 Completed Lipase Stat Lab 10/27/24 06:25 Completed Urinalysis Stat Lab 10/27/24 06:17 Completed Reevaluation(s) Reevaluation #1: Patient needs to be transferred for a HIDA scan but does not want to wait and would like to leave AMA. This patient is choosing to leave against medical advice. I have personally explained to the patient that choosing to do so may result in permanent bodily harm or . I discussed a great length that without further evaluation and monitoring there may be unforeseen circumstances and deterioration causing permanent bodily harm or as a result of their choice. The patient is alert, oriented and competent at this time. The patient states that they are aware of the serious risks as explained, but they continue to wish to leave against medical advice. In light of their decision to leave AMA, follow-up has been arranged and they are aware of the importance of following up as instructed. They have been advised that they should return to the ED immediately if they change their mind at any time, or if their condition begins to change or worsen. Time: 13:34 Vital Signs Vital signs: Vital Signs Temperature 98.5 F 10/27/24 05:44 Pulse Rate 80 10/27/24 05:44 Respiratory Rate 16 10/27/24 05:44 Blood Pressure 124/75 10/27/24 05:44 Pulse Oximetry (%) 100 10/27/24 05:44 Oxygen Delivery Method Room Air 10/27/24 05:44 Abdominal Pain MDM MDM Narrative MDM Narrative:: Elma Stubbs am scribing for and in the presence of Dr. Velasquez. Patient is a 38-year-old male with medical history notable for liver cirrhosis and diabetes is in the emergency department concerns of abdominal pain. Prior provider evaluated patient. Ordered labs, CT scan without contrast offered medication for symptom relief. Labs without acute hematologic or significant metabolic abnormality beyond patient's baseline. Patient has a history of chronic hyperbilirubinemia and transaminitis. CT scan without contrast shows gallstones, splenomegaly, esophageal varices, perigastric varices, mild ascites, 10 mm fat-containing umbilical hernia, L5-S1 3 mm central disc bulge. Given findings on CT ordered right upper quadrant ultrasound. 1334: Patient needs to be transferred for a HIDA scan but does not want to wait and would like to leave AMA. This patient is choosing to leave against medical advice. I have personally explained to the patient that choosing to do so may result in permanent bodily harm or . I discussed a great length that without further evaluation and monitoring there may be unforeseen circumstances and deterioration causing permanent bodily harm or as a result of their choice. The patient is alert, oriented and competent at this time. The patient states that they are aware of the serious risks as explained, but they continue to wish to leave against medical advice. In light of their decision to leave AMA, follow-up has been arranged and they are aware of the importance of following up as instructed. They have been advised that they should return to the ED immediately if they change their mind at any time, or if their condition begins to change or worsen. Patient data External records reviewed:: [facility] previous records Clinical information provided by:: patient Social determinants that could affect healthcare access:: alcohol use Patient has the following chronic illnesses:: Varices, alcohol related liver disease How is presenting disease/condition affected by chronic disease/condition?: exacerbated by Evaluation data The following diagnostics were reviewed and interpreted by me:: lab results and radiology exam(s) Lab and/or radiology exams considered but not ordered:: none Interpretation Summary: Procedure(s): CT abdomen pelvis wo con Accession Number(s): [id number] cc: Darius Sykes MD; John Viramontes MD; Palak Amato~ Examination: CT abdomen and pelvis without contrast. Coronal 3-D reconstructions. Sagittal 2-D reconstructions. Date and time of exam:October 27, 2024, 0608 hours INDICATIONS: Onset abdominal pain today CTDI: vol (mGy): 7.53 DLP: (mGycm): 478 Technique: Axial images of the abdomen have been obtained, 3 mm slice thickness Intravenous contrast material has not been administered. Low dose protocols were performed. One or more of the following dose reduction techniques were used; automated exposure control, adjustment of the mA and/or KV according to patient size, use of iterative reconstruction technique. Findings: Liver is irregular in contour, no focal liver lesions Gallstones, gallbladder wall appears thickened Prominent splenomegaly No pancreatic mass Esophageal varices Perigastric varices No renal or ureteral calculi, no hydronephrosis Mild ascites 10 mm fat-containing umbilical hernia Normal appendix No bowel obstruction Minimal thickening of the urinary bladder wall No prostatomegaly L5-S1 3 mm central lumbar disc bulge IMPRESSION: Cirrhosis Prominent splenomegaly Mild ascites Esophageal and perigastric varices Cholelithiasis, recommend hepatobiliary sonography to exclude cholecystitis Normal appendix Dictated By: John Viramontes MD Procedure(s): US abdomen limited Accession Number(s): [id number] cc: Darius Sykes MD; John Viramontes MD; Uma Velasquez MD~ Examination: Abdomen sonogram, Limited Date and time of exam: October 27, 2024 0908 hrs. Indications: Right upper abdominal pain beginning 3 days ago Technique: Real-time gaitan scale transabdominal sonographic images of the upper abdomen obtained. Findings: Multiple gallstones Gallbladder wall 0.5 cm Common bile duct 0.4 cm Pancreatic head 2.9 cm Liver 17.0 cm smooth contour no focal liver lesions. Normal hepatopedal portal venous flow. Patent IVC Impression: Cholelithiasis Abnormal thickening of the gallbladder wall suspicious for cholecystitis, recommend HIDA scan or MRCP follow-up Mild to moderate hepatomegaly. Dictated By: John Viramontes MD Medications / Prescriptions Medications or Prescriptions considered but not ordered:: none Medication administrations:: see above if any Consultations Consultation(s) initiated? (list below): No Diagnosis Differential diagnosis abdominal pain: abdominal pain and other (Dilated common bile duct, choledocholithiasis) Most likely diagnosis given after review of the tests above:: cholecystitis Admission Indicated Admission indicated?: indicated (Transfer indicated) Admission Request Was there a request for admission?: No Disposition Plan Disposition Plan: other (specify) (Left AGAINST MEDICAL ADVICE) Discharge Plan Plan Patient Disposition: Left Against Medical Advice Prescriptions/Referrals Prescriptions/Med Rec: No Action diazepam 10 mg tablet 10 mg PO BID PRN (Reason: muscle spasm) Qty: 6 0RF acetaminophen-codeine 300-30 mg tablet 2 tab PO Q8H MDD 6 PRN (Reason: pain) Qty: 20 0RF chlordiazepoxide HCl 25 mg capsule 25 mg PO TID PRN (Reason: alcohol withdrawal) Qty: 20 0RF Referrals: Darius Sykes MD [Primary Care Provider] - In 1 week Problem List Clinical Impression: Acute cholecystitis Patient/Caregiver Discharge Instructions Print Language: Tuvaluan
--- NOTE | 2024-10-27 07:38 | PD.EDADDENDU ---
Emergency Room Addendum Addendum Narrative: Patient is a 38-year-old male with medical history notable for liver cirrhosis and diabetes is in the emergency department concerns of abdominal pain. Prior provider evaluated patient. Ordered labs, CT scan without contrast offered medication for symptom relief. Labs without acute hematologic or significant metabolic abnormality beyond patient's baseline. Patient has a history of chronic hyperbilirubinemia and transaminitis. CT scan without contrast shows gallstones, splenomegaly, esophageal varices, perigastric varices, mild ascites, 10 mm fat-containing umbilical hernia, L5-S1 3 mm central disc bulge. Given findings on CT ordered right upper quadrant ultrasound.
[2024-10-27 08:46] VITALS: BP 124/60; PULSE 72; PULSE 73; RESP 16; TEMP 36.8; O2SAT 100
[2024-10-27 10:47] VITALS: BP 109/59; PULSE 69; PULSE 71; RESP 19; TEMP 36.6; O2SAT 100
[2024-10-27 12:44] VITALS: BP 119/61; PULSE 62; PULSE 65; RESP 17; TEMP 36.6; O2SAT 100
--- NOTE | 2024-10-27 13:44 | PC.NURSE ---
patient left [facility] before HIDA scan patient no longer wanted to wait. patient was given [facility]a form, Dr. Qureshi provided thorough explanation of risk of leaving [facility]. Forms signed. Patient verbalizes understanding.
== END 2024-10-27 13:44 | disposition left against medical advice (07) ==
PROVIDERS: Nurse Practitioner Family; Emergency Provider Emergency Medicine; PCP Family Medicine
DX: K80.00 Calculus of gallbladder with acute cholecystitis without obstruction (principal); R16.2 Hepatomegaly with splenomegaly, not elsewhere classified; K70.31 Alcoholic cirrhosis of liver with ascites; I85.10 Secondary esophageal varices without bleeding; K42.9 Umbilical hernia without obstruction or gangrene; Z53.29 Procedure and treatment not carried out because of patient's decision for other reasons
CPT/HCPCS: 36415; 74176; 76705; 80053; 81001; 83690; 85025; 99283